=== PATIENT | female | born 1955 | race African-American/Black ===

== ENCOUNTER 2024-09-22 12:02 | Emergency (ER) | payer MEDICARE, OTHER ==
[~2024-09-22] VITALS: Ht 165.1 cm; Wt 56.8 kg
[2024-09-22 12:13] VITALS: TEMP 97.5
[2024-09-22] MEDS: LIDOCAINE 5% TRANSDERMAL PATCH TD ONE (13:11)
[2024-09-22] MEDS: KETOROLAC TROMETHAMINE 30 MG/ML VIAL IM ONE (13:12)
[2024-09-22] MEDS ORDERED: IBUP-1506 PO (15:23)
[2024-09-22 15:48] VITALS: BP 141/76; PULSE 70; RESP 18; O2SAT 98
== END 2024-09-22 16:00 | disposition home or self-care (01) ==
LOC: EMS 12:06
DX: S16.1XXA Strain of muscle, fascia and tendon at neck level, initial encounter (principal); M25.561 Pain in right knee; I10 Essential (primary) hypertension; E78.00 Pure hypercholesterolemia, unspecified; V89.2XXA Person injured in unspecified motor-vehicle accident, traffic, initial encounter; Y93.89 Activity, other specified; Y92.410 Unspecified street and highway as the place of occurrence of the external cause; Y99.8 Other external cause status
CPT/HCPCS: 99283; 73562; 96372; J1885